=== PATIENT | male | born 1955 | race Caucasian/White ===

== ENCOUNTER 2016-09-30 20:17 | Emergency (ER) | payer MEDICARE, OTHER ==
[~2016-09-30] VITALS: Ht 177.8 cm; Wt 100.0 kg
[~2016-09-30 20:17] MED LIST: ASPI81 PO; ATOR40TA28 PO; BACL10TA PO; DIAZ5 PO; DOCU250C91 PO; DULO30CA2 PO; FAMO20 PO; FENO48TA15 PO; GABA-529 PO; METO25 PO; MIRALAX PO; PIOG15TA13 PO; RIVA10 PO; SENN-30 PO; TRAM50TA4 PO; TUSSI5L PO
[2016-09-30 20:33] LABS: GLUCOSE,POINT OF CARE 115 MG/DL (70-110)
[2016-09-30] MEDS ORDERED: ACET500C4 PO (20:38)
[2016-09-30] MEDS ORDERED: DIPH25 PO (20:38)
[2016-09-30] MEDS ORDERED: PERTUSS(ACELL),DIPH,TET VAC/PF 0.5 ML VIAL IM ONE (20:45)
[2016-09-30] MEDS ORDERED: ACETAMINOPHEN 325 MG TABLET PO ONE (20:45)
[2016-09-30 23:00] VITALS: BP 125/74
== END 2016-09-30 23:39 | disposition home or self-care (01) ==
LOC: EMS 20:19
DX: S01.81XA Laceration without foreign body of other part of head, initial encounter (principal); K21.9 Gastro-esophageal reflux disease without esophagitis; I10 Essential (primary) hypertension; E78.00 Pure hypercholesterolemia, unspecified; E11.9 Type 2 diabetes mellitus without complications; I25.2 Old myocardial infarction; Z79.82 Long term (current) use of aspirin; Z91.011 Allergy to milk products; Z86.73 Personal history of transient ischemic attack (TIA), and cerebral infarction without residual deficits; W01.0XXA Fall on same level from slipping, tripping and stumbling without subsequent striking against object, initial encounter; Y93.89 Activity, other specified; Y92.098 Other place in other non-institutional residence as the place of occurrence of the external cause; Y99.8 Other external cause status
CPT/HCPCS: 70450; 70486; 82962; 90471; 90715; 99284

== ENCOUNTER 2017-10-18 22:16 | Inpatient (IN) | payer MEDICARE, OTHER ==
[~2017-10-18] VITALS: Ht 172.7 cm; Wt 108.1 kg
[~2017-10-18 22:16] MED LIST changes: +ACET500C4 PO; +DIPH25 PO; -PIOG15TA13 PO; +PIOG15TA6 PO; +SENN-175 PO; -SENN-30 PO
[2017-10-18 22:59] LABS: BASOPHILS % (AUTO) 1.4 % (0.0-2.0); EOSINOPHILS % (AUTO) 3.4 % (1.0-6.0); HEMATOCRIT 29.4 % (41-53); HEMOGLOBIN 9.1 g/dL (13.5-17.5); LYMPHOCYTES # (AUTO) 1.9 K/uL (1.0-4.8); LYMPHOCYTES % (AUTO) 23.4 % (22.0-44.0); MEAN CORPUSCULAR HEMOGLOBIN 20.2 pg (26.0-34.0); MEAN CORPUSCULAR HGB CONC 30.9 G/dL (31.0-37.0); MEAN CORPUSCULAR VOLUME 66 fL (80-100); MONOCYTES # (AUTO) 0.9 K/uL (0.1-1.0); MONOCYTES % (AUTO) 10.8 % (2.0-9.0); NEUTROPHILS # (AUTO) 4.9 K/uL (1.8-7.7); PLATELET COUNT (AUTO) 512 K/uL (150-450); RED BLOOD CELL COUNT(AUTO) 4.49 MIL/uL (4.50-5.90); RED CELL DISTRIBUTION WIDTH 18.7 % (11.5-14.5)
[2017-10-18 23:15] LABS: ALBUMIN 3.5 g/dL (3.4-5.0); BILIRUBIN,TOTAL 0.2 mg/dL (0.1-1.0); CALCIUM, TOTAL 9.1 mg/dL (8.8-10.5); CREATININE 1.52 mg/dL (0.60-1.30); POTASSIUM 3.9 mmol/L (3.5-5.1); TOTAL PROTEIN, SERUM 7.6 g/dL (6.4-8.2)
[2017-10-19] MEDS ORDERED: ACETAMINOPHEN 325 MG TABLET PO PRN
[2017-10-19] MEDS ORDERED: 0.9% SODIUM CHLORIDE 10 ML SYRINGE IVP PRN
[2017-10-19 00:47] LABS: GLUCOSE,POINT OF CARE 406 MG/DL (70-110)
[2017-10-19] MEDS ORDERED: SODIUM CHLORIDE 0.9% 1,000 ML IV ONE (01:15)
[2017-10-19 01:47] VITALS: BP 107/59
[2017-10-19 04:06] VITALS: BP 114/63
[2017-10-19] MEDS ORDERED: PANTOPRAZOLE SODIUM 40 MG/VIAL IVP ONE (05:15)
[2017-10-19] MEDS ORDERED: TraMADol HCL 50 MG TABLET PO PRN (05:30)
[2017-10-19] MEDS ORDERED: ACETAMINOPHEN 500 MG TABLET PO PRN (05:30)
[2017-10-19] MEDS ORDERED: DEXTROSE 50%-WATER 25 GM/50 ML SYRINGE IVP PRN (05:30)
[2017-10-19] MEDS ORDERED: IPRATROPIUM BROMIDE 0.5 MG/2.5 ML NEB SOLUTION NEB PRN (05:30)
[2017-10-19] MEDS ORDERED: ALBUTEROL SULFATE 2.5 MG/0.5 ML NEB SOLUTION NEB PRN (05:30)
[2017-10-19] MEDS ORDERED: ONDANSETRON HCL 4 MG/2 ML VIAL IVP PRN ×2 (05:30)
[2017-10-19] MEDS: PANTOPRAZOLE SODIUM 80 MG in SODIUM CHLORIDE 0.9% 100 ML IV SCH ×2 (06:07→16:56)
[2017-10-19 06:15] LABS: BASOPHILS % (AUTO) 1.2 % (0.0-2.0); EOSINOPHILS % (AUTO) 4.3 % (1.0-6.0); HEMOGLOBIN 7.9 g/dL (13.5-17.5); LYMPHOCYTES # (AUTO) 1.9 K/uL (1.0-4.8); MEAN CORPUSCULAR HEMOGLOBIN 20.7 pg (26.0-34.0); MEAN CORPUSCULAR HGB CONC 31.7 G/dL (31.0-37.0); MEAN CORPUSCULAR VOLUME 65 fL (80-100); MONOCYTES # (AUTO) 0.8 K/uL (0.1-1.0); MONOCYTES % (AUTO) 11.3 % (2.0-9.0); NEUTROPHILS # (AUTO) 3.9 K/uL (1.8-7.7); NEUTROPHILS % (AUTO) 56.2 % (40.0-70.0); PLATELET COUNT (AUTO) 439 K/uL (150-450); RED BLOOD CELL COUNT(AUTO) 3.83 MIL/uL (4.50-5.90); RED CELL DISTRIBUTION WIDTH 19.1 % (11.5-14.5)
[2017-10-19 06:16] LABS: PROTHROMBIN TIME 10.9 SEC (9.4-11.6)
[2017-10-19 06:20] LABS: ANION GAP 7 mmol/L (8-16); CALCIUM, TOTAL 8.7 mg/dL (8.8-10.5); CARBON DIOXIDE 27 mmol/L (22-29); CHLORIDE 103 mmol/L (98-107); CREATININE 1.19 mg/dL (0.60-1.30); GLOMERULAR FILTR. RATE CALC > 60 mL/min (>60); GLUCOSE,RANDOM 251 mg/dL (70-110); POTASSIUM 3.6 mmol/L (3.5-5.1); SODIUM SERUM 137 mmol/L (136-145); UREA NITROGEN, BLOOD 17 mg/dL (7-18)
[2017-10-19 06:26] LABS: % IRON SATURATION 3.1 % (30-44); IRON, SERUM 16 mcg/dL (50-175); TOTAL IRON BINDING CAPACITY 505 mcg/dL (250-450)
[2017-10-19] MEDS: SODIUM CHLORIDE 0.9% 1,000 ML IV SCH ×2 (06:36→20:40)
[2017-10-19 06:37] LABS: ALANINE AMINOTRANSFERASE 33 U/L (12-78); ALBUMIN 3.1 g/dL (3.4-5.0); ALKALINE PHOSPHATASE 59 U/L (46-116); ASPARTATE AMINOTRANSFERASE 26 U/L (15-37); BILIRUBIN,TOTAL 0.2 mg/dL (0.1-1.0); CHOLESTEROL 108 mg/dL (131-200); FERRITIN 6 ng/mL (26-388); FREE T4 (FREE THYROXINE) 1.03 ng/dL (0.76-1.46); HDL CHOLESTEROL 27 mg/dL (40-60); LDL CHOL (CALC.) 54 mg/dL (0-130); THYROID STIMULATING HORMONE 1.86 uIU/mL (0.36-3.74); TOTAL PROTEIN, SERUM 6.6 g/dL (6.4-8.2); TRIGLYCERIDES 136 mg/dL (15-150)
[2017-10-19 07:36] VITALS: BP 142/59
[2017-10-19 07:39] LABS: AMPHET/METH SCREEN,URINE NEGATIVE (NEGATIVE); BARBITURATE SCREEN, URINE NEGATIVE (NEGATIVE); BENZODIAZEPINES SCREEN,URINE POSITIVE (NEGATIVE); CANNABINOID SCREEN,URINE NEGATIVE (NEGATIVE); COCAINE SCREEN,URINE NEGATIVE (NEGATIVE); METHADONE SCREEN, URINE NEGATIVE (NEGATIVE); OPIATE SCREEN,URINE NEGATIVE (NEGATIVE); PHENCYCLIDINE SCREEN,URINE NEGATIVE (NEGATIVE)
[2017-10-19] MEDS: FENOFIBRATE 48 MG TABLET PO SCH (08:28)
[2017-10-19] MEDS: ATORVASTATIN CALCIUM 40 MG TABLET PO SCH (08:28)
[2017-10-19] MEDS: METOPROLOL TARTRATE 25 MG TABLET PO SCH ×2 (08:28→20:40)
[2017-10-19] MEDS: DULoxetine HCL 60 MG CAPSULE PO SCH (08:28)
[2017-10-19] MEDS: GABAPENTIN 100 MG CAPSULE PO SCH ×3 (08:28→20:40)
[2017-10-19 08:55] LABS: APPEARANCE,URINE CLEAR (CLEAR); BILIRUBIN,URINE NEGATIVE (NEGATIVE); GLUCOSE, URINE (UA) >=1000 mg/dL (NEGATIVE); KETONES,URINE NEGATIVE (NEGATIVE); LEUKOCYTE ESTERASE ,URINE NEGATIVE (NEGATIVE); NITRATE,URINE NEGATIVE (NEGATIVE); OCCULT BLOOD,URINE NEGATIVE (NEGATIVE); PH,URINE 5.5 (5.0-8.0); PROTEIN,URINE NEGATIVE (NEGATIVE); UROBILINOGEN,URINE 0.2 mg/dL (<=1.0)
[2017-10-19 09:26] LABS: BACTERIA,URINE None Seen /HPF (None Seen); RBC,URINE None Seen /HPF (0-2); WBC,URINE None Seen /HPF (0-5)
[2017-10-19 09:44] LABS: FOLATE SERUM 16.6 ng/mL (5.4-)
[2017-10-19] MEDS ORDERED: DULO60CA44 PO (11:02)
[2017-10-19] MEDS ORDERED: RIVA20TA PO (11:02)
[2017-10-19 11:29] VITALS: BP 142/75
[2017-10-19 14:45] LABS: HEMATOCRIT 27.6 % (41-53); HEMOGLOBIN 8.5 g/dL (13.5-17.5)
[2017-10-19] MEDS ORDERED: PANTOPRAZOLE SODIUM 40 MG/VIAL IVP SCH (16:00)
[2017-10-19 16:05] VITALS: BP 120/68
[2017-10-19 17:08] LABS: GLUCOMETER DEV NAME(LOC) 5N 2S; GLUCOSE,POINT OF CARE 267 MG/DL (70-110)
[2017-10-19 17:08] LABS: GLUCOMETER DEV NAME(LOC) 5N 2S; GLUCOSE,POINT OF CARE 309 MG/DL (70-110)
[2017-10-19] MEDS: INSULIN LISPRO 100 UNITS/ML SQ PRN ×2 (17:57→20:49)
[2017-10-19 19:20] VITALS: BP 137/69
[2017-10-19 20:37] LABS: HEMATOCRIT 27.2 % (41-53); HEMOGLOBIN 8.5 g/dL (13.5-17.5)
[2017-10-19 22:23] LABS: GLUCOMETER DEV NAME(LOC) 5S 1M; GLUCOSE,POINT OF CARE 206 MG/DL (70-110)
[2017-10-20 00:26] VITALS: BP 109/67
[2017-10-20 02:07] LABS: GLUCOMETER DEV NAME(LOC) 5S 2Q; GLUCOSE,POINT OF CARE 225 MG/DL (70-110)
[2017-10-20 03:13] LABS: HEMATOCRIT 26.8 % (41-53); HEMOGLOBIN 8.6 g/dL (13.5-17.5)
[2017-10-20 05:05] VITALS: BP 118/84
[2017-10-20] MEDS: PANTOPRAZOLE SODIUM 80 MG in SODIUM CHLORIDE 0.9% 100 ML IV SCH (06:08)
[2017-10-20] MEDS: SODIUM CHLORIDE 0.9% 1,000 ML IV SCH (06:09)
[2017-10-20 07:32] VITALS: BP 127/79
[2017-10-20 08:12] LABS: HEMATOCRIT 27.2 % (41-53); HEMOGLOBIN 8.7 g/dL (13.5-17.5)
[2017-10-20] MEDS ORDERED: FentaNYL CITRATE-PF 100 MCG/2 ML VIAL ONE (08:19)
[2017-10-20] MEDS ORDERED: MIDAZOLAM HCL 5 MG/ML VIAL ONE (08:19)
[2017-10-20] MEDS ORDERED: SODIUM CHLORIDE 0.9% 1,000 ML IV ONE (08:22)
[2017-10-20] MEDS ORDERED: PEG 3350/NA SULF,BICARB,CL/KCL 4000 ML SOLUTION PO ONE (09:00)
[2017-10-20] MEDS: GABAPENTIN 100 MG CAPSULE PO SCH ×3 (09:53→20:18)
[2017-10-20] MEDS: METOPROLOL TARTRATE 25 MG TABLET PO SCH ×2 (09:53→20:18)
[2017-10-20] MEDS: DULoxetine HCL 60 MG CAPSULE PO SCH (09:53)
[2017-10-20] MEDS: FENOFIBRATE 48 MG TABLET PO SCH (09:53)
[2017-10-20] MEDS: ATORVASTATIN CALCIUM 40 MG TABLET PO SCH (09:53)
[2017-10-20 11:28] VITALS: BP 119/81
[2017-10-20] MEDS ORDERED: PROPOFOL 1% 20 ML VIAL IVP ONE (12:00)
[2017-10-20] MEDS ORDERED: LIDOCAINE HCL/PF 2% 5 ML VIAL INJ ONE (12:00)
[2017-10-20] MEDS: INSULIN LISPRO 100 UNITS/ML SQ PRN ×2 (13:13→18:14)
[2017-10-20 14:35] LABS: HEMATOCRIT 28.7 % (41-53); HEMOGLOBIN 8.7 g/dL (13.5-17.5)
[2017-10-20 15:59] VITALS: BP 122/80
[2017-10-20 19:36] VITALS: BP 122/66
[2017-10-21] VITALS (7 sets, daily range): BP systolic 127–150; BP diastolic 70–74
[2017-10-21] MEDS: SODIUM CHLORIDE 0.9% 1,000 ML IV SCH ×2 (06:24→19:06)
[2017-10-21 06:32] LABS: HEMATOCRIT 26.1 % (41-53); HEMOGLOBIN 8.1 g/dL (13.5-17.5)
[2017-10-21 07:38] LABS: GLUCOMETER DEV NAME(LOC) 5S 1M; GLUCOSE,POINT OF CARE 169 MG/DL (70-110)
[2017-10-21 07:38] LABS: GLUCOMETER DEV NAME(LOC) 5S 1M; GLUCOSE,POINT OF CARE 192 MG/DL (70-110)
[2017-10-21] MEDS ORDERED: SODIUM CHLORIDE 0.9% 1,000 ML IV ONE (08:40)
[2017-10-21] MEDS ORDERED: HYDROmorphone 2 MG/ML SYRINGE IVP PRN (08:45)
[2017-10-21] MEDS: METOPROLOL TARTRATE 25 MG TABLET PO SCH ×2 (11:02→20:16)
[2017-10-21] MEDS: DULoxetine HCL 60 MG CAPSULE PO SCH (11:02)
[2017-10-21] MEDS: ATORVASTATIN CALCIUM 40 MG TABLET PO SCH (11:02)
[2017-10-21] MEDS: GABAPENTIN 100 MG CAPSULE PO SCH ×3 (11:02→20:16)
[2017-10-21] MEDS: FENOFIBRATE 48 MG TABLET PO SCH (11:03)
[2017-10-21] MEDS: OxyCODONE HCL/ACETAMINOPHEN 5-325 MG TABLET PO PRN (11:03)
[2017-10-21] MEDS: INSULIN LISPRO 100 UNITS/ML SQ PRN ×3 (11:52→20:18)
[2017-10-21] MEDS ORDERED: LIDOCAINE HCL/PF 2% 5 ML VIAL INJ ONE (12:00)
[2017-10-21] MEDS ORDERED: PROPOFOL 1% 20 ML VIAL IVP ONE (12:00)
[2017-10-21 14:40] LABS: HEMATOCRIT 27.1 % (41-53); HEMOGLOBIN 8.4 g/dL (13.5-17.5)
[2017-10-21 20:26] LABS: HEMATOCRIT 28.8 % (41-53)
[2017-10-22] MEDS: OxyCODONE HCL/ACETAMINOPHEN 5-325 MG TABLET PO PRN (00:18)
[2017-10-22 00:33] LABS: GLUCOMETER DEV NAME(LOC) 5N 2S; GLUCOSE,POINT OF CARE 142 MG/DL (70-110)
[2017-10-22 00:33] LABS: GLUCOMETER DEV NAME(LOC) 5N 2S; GLUCOSE,POINT OF CARE 168 MG/DL (70-110)
[2017-10-22 00:33] LABS: GLUCOMETER DEV NAME(LOC) 5N 2S; GLUCOSE,POINT OF CARE 151 MG/DL (70-110)
[2017-10-22 00:33] LABS: GLUCOMETER DEV NAME(LOC) 5N 2S; GLUCOSE,POINT OF CARE 231 MG/DL (70-110)
[2017-10-22 00:33] LABS: GLUCOMETER DEV NAME(LOC) 5N 2S; GLUCOSE,POINT OF CARE 180 MG/DL (70-110)
[2017-10-22 00:34] LABS: GLUCOMETER DEV NAME(LOC) 5N 2S; GLUCOSE,POINT OF CARE 204 MG/DL (70-110)
[2017-10-22 02:56] LABS: HEMATOCRIT 26.9 % (41-53); HEMOGLOBIN 8.3 g/dL (13.5-17.5)
[2017-10-22 04:49] VITALS: BP 122/86
[2017-10-22] MEDS: INSULIN LISPRO 100 UNITS/ML SQ PRN ×2 (05:58→12:29)
[2017-10-22 07:48] VITALS: BP 143/62
[2017-10-22 07:49] LABS: GLUCOMETER DEV NAME(LOC) 5S 1M; GLUCOSE,POINT OF CARE 171 MG/DL (70-110)
[2017-10-22] MEDS: ATORVASTATIN CALCIUM 40 MG TABLET PO SCH (08:38)
[2017-10-22] MEDS: FENOFIBRATE 48 MG TABLET PO SCH (08:38)
[2017-10-22] MEDS: GABAPENTIN 100 MG CAPSULE PO SCH ×2 (08:38→16:00)
[2017-10-22] MEDS: DULoxetine HCL 60 MG CAPSULE PO SCH (08:38)
[2017-10-22] MEDS: METOPROLOL TARTRATE 25 MG TABLET PO SCH (08:38)
[2017-10-22 09:57] LABS: HEMATOCRIT 28.9 % (41-53); HEMOGLOBIN 8.9 g/dL (13.5-17.5)
[2017-10-22 11:36] VITALS: BP 127/61
[2017-10-22 15:27] LABS: HEMATOCRIT 25.8 % (41-53); HEMOGLOBIN 8.1 g/dL (13.5-17.5)
[2017-10-22 15:56] VITALS: BP 132/70
[2017-10-22 16:03] LABS: GLUCOMETER DEV NAME(LOC) 5N 2S; GLUCOSE,POINT OF CARE 149 MG/DL (70-110)
[2017-10-23 09:21] LABS: LEGIONELLA PNEUMO AG URINE Negative (Negative)
[2017-10-23 10:16] LABS: ORGANISM ID Not indicated.; S PNEUMO SOURCE Urine; STREP PNEUMONIAE AG URINE Negative (Negative); STREP.PNEUMO BODY FLUID CULT. Not Indicated
== END 2017-10-22 17:10 | DRG 682 ==
LOC: EMS 22:17 → 5N 10-19 00:08
PROVIDERS: ADMIT Internal Medicine; ATTEND Internal Medicine
PROC: 0DJ08ZZ Inspection of Upper Intestinal Tract, Via Natural or Artificial Opening Endoscopic (ICD-10-PCS; principal; 2017-10-20 09:00)
PROC: 0DJD8ZZ Inspection of Lower Intestinal Tract, Via Natural or Artificial Opening Endoscopic (ICD-10-PCS; 2017-10-21)
DX: N17.9 Acute kidney failure, unspecified (principal); K57.91 Diverticulosis of intestine, part unspecified, without perforation or abscess with bleeding; D62 Acute posthemorrhagic anemia; E87.1 Hypo-osmolality and hyponatremia; I69.351 Hemiplegia and hemiparesis following cerebral infarction affecting right dominant side; E11.40 Type 2 diabetes mellitus with diabetic neuropathy, unspecified; E11.65 Type 2 diabetes mellitus with hyperglycemia; I11.9 Hypertensive heart disease without heart failure; E78.00 Pure hypercholesterolemia, unspecified; E78.5 Hyperlipidemia, unspecified; F41.9 Anxiety disorder, unspecified; D47.3 Essential (hemorrhagic) thrombocythemia; F32.9 Major depressive disorder, single episode, unspecified; F41.1 Generalized anxiety disorder; G89.4 Chronic pain syndrome; K21.9 Gastro-esophageal reflux disease without esophagitis; Z91.011 Allergy to milk products; Z91.013 Allergy to seafood; Z79.01 Long term (current) use of anticoagulants; Z79.899 Other long term (current) drug therapy; Z79.82 Long term (current) use of aspirin
CPT/HCPCS: 70450; 70551; 80307; 82271; 82607; 82728; 82746; 83036; 83540; 83550; 83735; 84100; 84145; 84439; 84443; 85014; 85018; 86738; 87081; 87449; 87899; 93005; 93306; 97116; 97161; 97166; 97530; 97535; 99285; C9113; J2250; J2704; J3010; J3490; J7030; J7050

== ENCOUNTER 2020-02-14 08:21 | Emergency (ER) | payer MEDICARE, OTHER ==
[~2020-02-14] VITALS: Ht 177.8 cm; Wt 109.1 kg
[~2020-02-14 08:21] MED LIST changes: +ASPI-728 PO; -ASPI81 PO; +CLOP-31 PO; -DIAZ5 PO; -DIPH25 PO; -DOCU250C91 PO; +DSS100 PO; -DULO30CA2 PO; -FAMO20 PO; -FENO48TA15 PO; +GABA-1216 PO; -GABA-529 PO; +INSU100V SQ; +MAGOX PO; -MIRALAX PO; +MOM30 PO; +OXYC-530 PO; +PANT-31 PO; -PIOG15TA6 PO; -RIVA10 PO; -SENN-175 PO; -TRAM50TA4 PO; -TUSSI5L PO
[2020-02-14] MEDS ORDERED: KETOROLAC TROMETHAMINE 30 MG/ML VIAL IM ONE (09:15)
[2020-02-14] MEDS ORDERED: CYCLOBENZAPRINE HCL 10 MG TABLET PO ONE (09:15)
[2020-02-14] MEDS ORDERED: LIDOCAINE 5% TRANSDERMAL PATCH TD ONE (09:15)
[2020-02-14] MEDS ORDERED: ACETAMINOPHEN 500 MG TABLET PO ONE (09:15)
[2020-02-14 09:21] LABS: BASOPHILS % (AUTO) 1.2 % (0.0-2.0); EOSINOPHILS % (AUTO) 4.2 % (1.0-6.0); HEMATOCRIT 41.7 % (41-53); HEMOGLOBIN 14.5 g/dL (13.5-17.5); LYMPHOCYTES # (AUTO) 1.4 K/uL (1.0-4.8); LYMPHOCYTES % (AUTO) 25.2 % (22.0-44.0); MEAN CORPUSCULAR HEMOGLOBIN 30.5 pg (26.0-34.0); MEAN CORPUSCULAR HGB CONC 34.8 G/dL (31.0-37.0); MEAN CORPUSCULAR VOLUME 87 fL (80-100); MONOCYTES # (AUTO) 0.6 K/uL (0.1-1.0); MONOCYTES % (AUTO) 10.2 % (2.0-9.0); NEUTROPHILS # (AUTO) 3.3 K/uL (1.8-7.7); NEUTROPHILS % (AUTO) 59.2 % (40.0-70.0); PLATELET COUNT (AUTO) 304 K/uL (150-450); RED BLOOD CELL COUNT(AUTO) 4.77 MIL/uL (4.50-5.90); RED CELL DISTRIBUTION WIDTH 13.3 % (11.5-14.5)
[2020-02-14 09:32] LABS: CALCIUM, TOTAL 9.4 mg/dL (8.8-10.5); CREATININE 1.5 mg/dL (0.60-1.30); POTASSIUM 4.1 mmol/L (3.5-5.1)
[2020-02-14 09:56] LABS: ALBUMIN 3.8 g/dL (3.4-5.0); BILIRUBIN,TOTAL 0.7 mg/dL (0.1-1.0); TOTAL PROTEIN, SERUM 7.7 g/dL (6.4-8.2)
[2020-02-14] MEDS ORDERED: SODIUM CHLORIDE 0.9% 1,000 ML IV ONE (10:00)
[2020-02-14 10:43] VITALS: BP 112/67
== END 2020-02-14 11:41 | disposition home or self-care (01) ==
LOC: EMS 08:23
DX: G89.29 Other chronic pain (principal); E86.0 Dehydration; M79.10 Myalgia, unspecified site; F41.9 Anxiety disorder, unspecified; E11.9 Type 2 diabetes mellitus without complications; K21.9 Gastro-esophageal reflux disease without esophagitis; E78.00 Pure hypercholesterolemia, unspecified; I10 Essential (primary) hypertension; I25.2 Old myocardial infarction; F17.210 Nicotine dependence, cigarettes, uncomplicated; Z79.82 Long term (current) use of aspirin; Z91.011 Allergy to milk products; Z79.4 Long term (current) use of insulin
CPT/HCPCS: 36415; 80053; 82550; 82962; 85025; 96372; 99284; J1885